=== PATIENT | female | born 1945 | race Caucasian/White ===

== ENCOUNTER → 2016-10-08 | Outpatient (CLI) | payer MEDICARE, OTHER | LOC: SP 15:53 | PROVIDERS: ATTEND Obstetrics & Gynecology Gynecologic Oncology | DX: M79.604 Pain in right leg (principal); M79.605 Pain in left leg | CPT/HCPCS: 93970 ==

== ENCOUNTER → 2016-11-23 | Outpatient (CLI) | payer MEDICARE, OTHER | LOC: RAD 08:52 | PROVIDERS: ATTEND Internal Medicine Gastroenterology | DX: K74.69 Other cirrhosis of liver (principal) | CPT/HCPCS: 76700 ==

== ENCOUNTER 2017-02-11 10:51 | Inpatient (IN) | payer MEDICARE, OTHER ==
[2017-02-11] MEDS ORDERED: NORMAL SALINE 1000 ML 1,000 ML IV ONE ×2 (11:00→13:42)
--- NOTE | 2017-02-11 11:18 | ER Document Report ---
ED General - General Chief Complaint: Blood Pressure Problem Stated Complaint: WEAKNESS Mode of Arrival: Medic Information source: Patient Notes: 71-year-old female presents with complaints of feeling dehydrated. Patient notes that she gets dizzy lightheaded when she stands. Patient was found hypotensive initially by EMS, was given fluid bolus and states she feels much better. Patient is on 2 different blood pressure medications. Notes she is always thirsty has a history of diabetes TRAVEL OUTSIDE OF THE [place] IN LAST 30 DAYS: No - HPI Onset: Yesterday Onset/Duration: Intermittent, Persistent Quality of pain: No pain Severity: Moderate Pain Level: Denies Associated symptoms: Weakness Exacerbated by: Standing Relieved by: Denies Similar symptoms previously: No Recently seen / treated by doctor: No - Related Data Allergies/Adverse Reactions: azithromycin [From Zithromax] Allergy (Severe, Verified 12/16/15 16:29) weak,feels like dying ciprofloxacin [From Cipro] Allergy (Severe, Verified 06/22/16 12:41) Hives on face esomeprazole [From Nexium] Allergy (Severe, Verified 06/22/16 12:41) Diarrhea gabapentin Allergy (Severe, Verified 06/22/16 12:41) Throat closed oxycodone HCl [From Percocet] Allergy (Severe, Verified 12/16/15 16:29) throat closes pentazocine lactate [From Talwin] Allergy (Severe, Verified 12/16/15 16:29) hallucinate,urinary retention pregabalin [From Lyrica] Allergy (Severe, Verified 12/16/15 16:29) throat closes/hives propofol [Propofol] Allergy (Severe, Verified 12/16/15 16:29) Coma propoxyphene HCl [From Darvon] Allergy (Severe, Verified 12/16/15 16:29) throat closes rosiglitazone maleate [From Avandia] Allergy (Severe, Verified 12/16/15 16:29) violent headache thimerosal [From Merthiolate] Allergy (Severe, Verified 12/16/15 16:29) hives,rash,fever sulfamethoxazole [From Bactrim] Allergy (Unknown, Verified 06/22/16 12:41) Cannot remember reaction trimethoprim [From Bactrim] Allergy (Unknown, Verified 06/22/16 12:41) Cannot remember reaction omeprazole [From Prilosec] Adverse Reaction (Severe, Verified 12/16/15 16:29) liver enzymes elevated Smjklrn-Rup-Pod Reductase Inhibitor Adverse Reaction (Severe, Verified 12/16/15 16:29) liver enzymes elevated valdecoxib [From Bextra] Adverse Reaction (Severe, Verified 12/16/15 16:29) elevated liver enzymes Past Medical History - Social History Smoking Status: Never Smoker Cigarette use (# per day): No Chew tobacco use (# tins/day): No Smoking Education Provided: No Family History: None, Other - unable to obtain due to pt being unstable - Past Medical History Cardiac Medical History: Reports: Hx Coronary Artery Disease, Hx Heart Attack - 1991 CAUSED BY BLOOD CLOT, Hx Hypertension Pulmonary Medical History: Reports: Hx Pneumonia - 2 yrs ago Denies: Hx Asthma, Hx Bronchitis, Hx COPD Neurological Medical History: Denies: Hx Cerebrovascular Accident, Hx Seizures Endocrine Medical History: Reports: Hx Diabetes Mellitus Type 2 Musculoskeltal Medical History: Reports Hx Arthritis Psychiatric Medical History: Reports: Hx Depression Past Surgical History: Reports: Hx Orthopedic Surgery - rotator cuff. Denies: Hx Hysterectomy - Immunizations Hx Diphtheria, Pertussis, Tetanus Vaccination: Yes Hx Pneumococcal Vaccination: 06/19/15 Review of Systems - Review of Systems Notes: PHYSICAL EXAMINATION: GENERAL: Frail elderly female no acute distress HEAD: Atraumatic, normocephalic. EYES: Pupils equal round and reactive to light, extraocular movements intact, conjunctiva are normal. ENT: Nares patent, oropharynx clear without exudates. Moist mucous membranes. NECK: Normal range of motion, supple without lymphadenopathy LUNGS: Breath sounds clear to auscultation bilaterally and equal. No wheezes rales or rhonchi. HEART: Regular rate and rhythm without murmurs ABDOMEN: Soft, nontender, nondistended abdomen. No guarding, no rebound. No masses appreciated. Female : deferred Musculoskeletal: Normal range of motion, no pitting or edema. No cyanosis. NEUROLOGICAL: Cranial nerves grossly intact. Normal speech, normal gait. Normal sensory, motor exams PSYCH: Normal mood, normal affect. SKIN: Warm, Dry, normal turgor, no rashes or lesions noted. Physical Exam - Vital signs Vitals: Resp 20 02/11/17 10:55 Course - Re-evaluation Re-evalutation: 02/11/17 11:18 Given that patient improved significantly with fluid bolus I believe this may be secondary to dehydration rather than medication or sepsis however septic labs have been ordered. 02/11/17 13:39 pt bp improved iwht fluids, uti noted, will admit for hypotension, renal failure and uti - Vital Signs Vital signs: Temp Pulse Resp BP Pulse Ox 97.4 F 18 93/46 L 100 02/11/17 11:06 02/11/17 13:31 02/11/17 13:31 02/11/17 13:31 - Laboratory Result Diagrams: 02/11/17 11:04 02/11/17 11:04 Laboratory results interpreted by me: 02/11/17 02/11/17 02/11/17 11:04 11:04 11:04 RBC 2.85 L Hgb 9.1 L Hct 27.9 L MCV 98 H RDW 16.1 H Lymphocytes % 12.8 L VBG pH 7.21 L VBG HCO3 14.0 L Chloride 112 H Carbon Dioxide 13 L BUN 102 H Creatinine 2.72 H Est GFR ( Amer) 21 L Est GFR (Non-Af Amer) 17 L Glucose 198 H Total Bilirubin 1.6 H Direct Bilirubin 1.3 H Alkaline Phosphatase 192 H Urine Nitrite Ur Leukocyte Esterase 02/11/17 12:26 RBC Hgb Hct MCV RDW Lymphocytes % VBG pH VBG HCO3 Chloride Carbon Dioxide BUN Creatinine Est GFR ( Amer) Est GFR (Non-Af Amer) Glucose Total Bilirubin Direct Bilirubin Alkaline Phosphatase Urine Nitrite POSITIVE H Ur Leukocyte Esterase MODERATE H Critical Care Note - Critical Care Note Total time excluding time spent on procedures (mins): 49 Comments: 49 minutes of critical care time spent in direct contact evaluating and reevaluating the patient, treating symptoms, reviewing labs and studies and speaking with family and consultants excluding any procedures Discharge - Discharge Clinical Impression: Acute renal failure Qualifiers: Acute renal failure type: unspecified Qualified Code(s): N17.9 - Acute kidney failure, unspecified Urinary tract infection Qualifiers: Urinary tract infection type: acute cystitis Hematuria presence: without hematuria Qualified Code(s): N30.00 - Acute cystitis without hematuria Hypotension Qualifiers: Hypotension type: unspecified hypotension type Qualified Code(s): I95.9 - Hypotension, unspecified Condition: Fair Disposition: ADMITTED INPATIENT [facility] Admitted: [facility]
[2017-02-11 11:20] LABS: VENOUS BLOOD BASE EXCESS -12.9 mmol/L; VENOUS BLOOD PCO2 35.7 mmHg (35-63); VENOUS BLOOD PH 7.21 (7.30-7.42)
[2017-02-11 11:21] LABS: ABSOLUTE EOSINOPHILS # (AUTO) 0.3 10^3/uL (0.0-0.6); ABSOLUTE LYMPHOCYTES (AUTO) 0.9 10^3/uL (0.5-4.7); ABSOLUTE MONOCYTES (AUTO) 0.9 10^3/uL (0.1-1.4); ABSOLUTE NEUT (AUTO) 4.8 10^3/uL (1.7-8.2); BASOPHILS % (AUTO) 0.5 % (0-2); EOSINOPHILS % (AUTO) 4.8 % (0-6); HEMATOCRIT 27.9 % (36.0-47.0); HEMOGLOBIN 9.1 g/dL (12.0-15.5); HGB HCT DIFFERENCE -0.6; LYMPHOCYTES % (AUTO) 12.8 % (13-45); MEAN CORPUSCULAR HEMOGLOBIN 32.1 pg (27.0-33.4); MEAN CORPUSCULAR HGB CONC 32.8 g/dL (32.0-36.0); MEAN CORPUSCULAR VOLUME 98 fl (80-97); RED BLOOD COUNT 2.85 10^6/uL (3.72-5.28); RED CELL DISTRIBUTION WIDTH 16.1 % (11.5-14.0); SEGMENTED NEUTROPHILS % (AUTO) 68.9 % (42-78)
[2017-02-11 11:32] LABS: PROTHROMBIN TIME 14.3 SEC (11.4-15.4)
[2017-02-11 11:45] LABS: ALANINE AMINOTRANSFERASE 27 U/L (9-52); ALBUMIN 3.7 g/dL (3.5-5.0); ALKALINE PHOSPHATASE 192 U/L (38-126); ANION GAP 15 (5-19); ASPARTATE AMINO TRANSFERASE 28 U/L (14-36); BILIRUBIN,DIRECT 1.3 mg/dL (0.0-0.4); BILIRUBIN,TOTAL 1.6 mg/dL (0.2-1.3); BLOOD UREA NITROGEN 102 mg/dL (7-20); CALCIUM 9.9 mg/dL (8.4-10.2); CARBON DIOXIDE 13 mmol/L (22-30); CHLORIDE 112 mmol/L (98-107); CREATININE RESULT 2.72 mg/dL (0.52-1.25); GLUCOSE 198 mg/dL (75-110); POTASSIUM 4.6 mmol/L (3.6-5.0); TOTAL PROTEIN 7.4 g/dL (6.3-8.2)
[2017-02-11] MEDS ORDERED: SUCCINYLCHOLINE CHLORIDE INJ 200 MG/10 ML VIAL ONE (12:00)
--- NOTE | 2017-02-11 12:09 | RADIOLOGY REPORT (SQ) ---
EXAM DESCRIPTION: CHEST PA/LAT COMPLETED DATE/TIME: 02/11/2017 11:55 am REASON FOR STUDY: hypotension COMPARISON: August 2016 EXAM PARAMETERS: NUMBER OF VIEWS: two views TECHNIQUE: Digital Frontal and Lateral radiographic views of the chest acquired. RADIATION DOSE: NA LIMITATIONS: none FINDINGS: LUNGS AND PLEURA: No opacities, masses or pneumothorax. No pleural effusion. MEDIASTINUM AND HILAR STRUCTURES: No masses or contour abnormalities. HEART AND VASCULAR STRUCTURES: Heart normal size. No evidence for failure. BONES: No acute findings. HARDWARE: None in the chest. OTHER: No other significant finding. IMPRESSION: NO SIGNIFICANT RADIOGRAPHIC FINDING IN THE CHEST. TECHNICAL DOCUMENTATION: JOB ID: [id number] [employer]- All Rights Reserved
--- NOTE | 2017-02-11 12:30 | RADIOLOGY REPORT (SQ) ---
EXAM DESCRIPTION: CERV SP 4 OR 5 VIEWS COMPLETED DATE/TIME: 02/11/2017 12:14 pm REASON FOR STUDY: fall COMPARISON: None. NUMBER OF VIEWS: Five views. TECHNIQUE: AP, lateral, obliques and odontoid radiographic images acquired of the cervical spine. LIMITATIONS: None. FINDINGS: MINERALIZATION: Osteopenia. ALIGNMENT: There is minimal retrolisthesis of C5 in relation to C4. There is minimal retrolisthesis of C6 in relation to C7. Anterior and posterior osteophytes are present at these levels. VERTEBRAE: Vertebral bodies of normal height. DISCS: Disc spaces are narrowed at C4-5 and at C6-7. FORAMINA: Neural foramina are narrowed at C4-5 and at C6-7, apparently on the left more than the righ t. LATERAL AND POSTERIOR ELEMENTS: Hypertrophic facet changes are present at multiple levels. HARDWARE: None in the spine. SOFT TISSUES: No masses or calcifications. Lung apices clear. OTHER: No other significant finding. IMPRESSION: 1. Retrolistheses at C4-5 and at C6-7 as described. 2. Spondylosis, degenerative disc disease, and facet arthropathy. TECHNICAL DOCUMENTATION: JOB ID: [id number]- All Rights Reserved
[2017-02-11] MEDS: NORMAL SALINE 1000 ML 1,000 ML IV PRN ×2 (12:38→13:14)
[2017-02-11 13:16] LABS: APPEARANCE,URINE SLIGHTLY-CLOUDY; BILIRUBIN,URINE NEGATIVE (NEGATIVE); GLUCOSE, URINE NEGATIVE (NEGATIVE); KETONES,URINE NEGATIVE (NEGATIVE); LEUKOCYTE ESTERASE,URINE MODERATE (NEGATIVE); NITRITE,URINE POSITIVE (NEGATIVE); PROTEIN,URINE NEGATIVE (NEGATIVE); URINE SPECIFIC GRAVITY 1.008; UROBILINOGEN,URINE NEGATIVE mg/dL (<2.0)
[2017-02-11] MEDS ORDERED: CEFTRIAXONE 1 GM/D5W RTU 50 ML IV ONE (13:38)
--- NOTE | 2017-02-11 18:00 | PDOC H&P ---
History of Present Illness Admission Date/PCP: 02/11/17 14:21 SHAZIA RIGOBERTO Patient complains of: Worsening generalized weakness, low blood pressure History of Present Illness: ROHAN COONEY is a 71 year old female known to my practice who was brought by EMS to ED with complain of worsening generalized weakness and reported low blood pressure by EMS personnel on site. She reported episode of fall outside of her house about 3 weeks ago and thereafter have become more weaker. She admitted to bruising left side of her body with the fall. There are multiple other bruises from recurrent falls thereafter. She denied passing out. She admitted to dizziness, lightheadedness and her symptom worsen with standing. She denied headache, focal weakness, nausea, vomiting, fever or chills. Patient total hysterectomy for in-situ cervical cancer. Her morbidities include CAD, old Myocardial infarction, Hypertension and Diabetes mellitus type 2. Past Medical History Cardiac Medical History: Reports: Coronary Artery Disease, Myocardial Infarction - 1991 CAUSED BY BLOOD CLOT, Hypertension Pulmonary Medical History: Reports: Pneumonia - 2 yrs ago Denies: Asthma, Bronchitis, Chronic Obstructive Pulmonary Disease (COPD) Neurological Medical History: Denies: Seizures Endocrine Medical History: Reports: Diabetes Mellitus Type 2 Musculoskeltal Medical History: Reports: Arthritis Psychiatric Medical History: Reports: Depression Hematology: Reports: Anemia - Pernicious anemia, Iron deficient anemia Past Surgical History Past Surgical History: Reports: Orthopedic Surgery - rotator cuff Denies: Hysterectomy Social History Smoking Status: Former Smoker Last Time Smoked: 1990 Frequency of Alcohol Use: None Hx Recreational Drug Use: No Drugs: None Hx Prescription Drug Abuse: No - Advance Directive Resuscitation Status: Full Code Family History Family History: None, Other - unable to obtain due to pt being unstable Parental Family History Reviewed: Yes Children Family History Reviewed: Yes Sibling(s) Family History Reviewed.: Yes Medication/Allergy Allergies/Adverse Reactions: azithromycin [From Zithromax] Allergy (Severe, Verified 12/16/15 16:29) weak,feels like dying ciprofloxacin [From Cipro] Allergy (Severe, Verified 06/22/16 12:41) Hives on face esomeprazole [From Nexium] Allergy (Severe, Verified 06/22/16 12:41) Diarrhea gabapentin Allergy (Severe, Verified 06/22/16 12:41) Throat closed oxycodone HCl [From Percocet] Allergy (Severe, Verified 12/16/15 16:29) throat closes pentazocine lactate [From Talwin] Allergy (Severe, Verified 12/16/15 16:29) hallucinate,urinary retention pregabalin [From Lyrica] Allergy (Severe, Verified 12/16/15 16:29) throat closes/hives propofol [Propofol] Allergy (Severe, Verified 12/16/15 16:29) Coma propoxyphene HCl [From Darvon] Allergy (Severe, Verified 12/16/15 16:29) throat closes rosiglitazone maleate [From Avandia] Allergy (Severe, Verified 12/16/15 16:29) violent headache thimerosal [From Merthiolate] Allergy (Severe, Verified 12/16/15 16:29) hives,rash,fever sulfamethoxazole [From Bactrim] Allergy (Unknown, Verified 06/22/16 12:41) Cannot remember reaction trimethoprim [From Bactrim] Allergy (Unknown, Verified 06/22/16 12:41) Cannot remember reaction omeprazole [From Prilosec] Adverse Reaction (Severe, Verified 12/16/15 16:29) liver enzymes elevated Goifhya-Ctu-Teg Reductase Inhibitor Adverse Reaction (Severe, Verified 12/16/15 16:29) liver enzymes elevated valdecoxib [From Bextra] Adverse Reaction (Severe, Verified 12/16/15 16:29) elevated liver enzymes Review of Systems Constitutional: PRESENT: weakness. ABSENT: as per HPI, anorexia, chills, fatigue, fever(s), headache(s), night sweats, weight gain, weight loss, other Eyes: ABSENT: visual disturbances Ears: ABSENT: hearing changes Nose, Mouth, and Throat: ABSENT: as per HPI, headache(s), mouth pain, sore throat, vertigo, other Breasts: ABSENT: as per HPI, other Cardiovascular: ABSENT: as per HPI, chest pain, dyspnea on exertion, edema, orthropnea, palpitations, other Respiratory: ABSENT: cough, hemoptysis Gastrointestinal: ABSENT: abdominal pain, constipation, diarrhea, hematemesis, hematochezia, nausea, vomiting Genitourinary: ABSENT: dysuria, hematuria Musculoskeletal: ABSENT: joint swelling Integumentary: PRESENT: lesions - multiple ecchymotic lesions Neurological: PRESENT: weakness - general weakness Psychiatric: ABSENT: anxiety, depression, homidical ideation, suicidal ideation Hematologic/Lymphatic: ABSENT: easy bleeding, easy bruising, lymphadenopathy Allergic/Immunologic: PRESENT: seasonal rhinorrhea Physical Exam Vital Signs: Temp Pulse Resp BP Pulse Ox 98.0 F 17 106/50 L 100 02/11/17 15:46 02/11/17 16:16 02/11/17 16:16 02/11/17 16:15 Intake & Output 02/10/17 02/11/17 02/12/17 06:59 06:59 06:59 Output Total 350 Balance -350 General appearance: PRESENT: no acute distress Head exam: PRESENT: atraumatic, normocephalic Eye exam: PRESENT: conjunctiva pink, EOMI, PERRLA. ABSENT: scleral icterus Ear exam: PRESENT: normal external ear exam Mouth exam: PRESENT: moist, tongue midline Throat exam: ABSENT: post pharyngeal erythema, tonsillar erythema, tonsillar exudate, tonsillogmegaly, other Neck exam: PRESENT: full ROM. ABSENT: carotid bruit, JVD, lymphadenopathy, thyromegaly Respiratory exam: ABSENT: accessory muscle use, chest wall tenderness, clear to auscultation david, crackles, decreased breath sounds, prolonged expiratory phas, rales, retraction, rhonchi, stridor, symmetrical, tachypnea, unlabored, wheezes , other Cardiovascular exam: PRESENT: RRR. ABSENT: diastolic murmur, rubs, systolic murmur Pulses: PRESENT: normal dorsalis pedis pul, +2 pedal pulses bilateral Vascular exam: PRESENT: normal capillary refill GI/Abdominal exam: PRESENT: normal bowel sounds, soft. ABSENT: distended, guarding, mass, organolmegaly, rebound, tenderness Rectal exam: PRESENT: deferred Gentrourinary exam: PRESENT: ecchymosis Extremities exam: PRESENT: full ROM Musculoskeletal exam: PRESENT: deformity - related to joint arthritis involvement, full ROM Neurological exam: PRESENT: alert, awake, oriented to person, oriented to place , oriented to time, oriented to situation, CN II-XII grossly intact. ABSENT: motor sensory deficit Psychiatric exam: PRESENT: appropriate affect, normal mood. ABSENT: homicidal ideation, suicidal ideation Skin exam: PRESENT: rash - irregular border, erythematous rash in the groin and beneath breast tissue, warm Results Impressions: Chest X-Ray 02/11/17 11:00 IMPRESSION: NO SIGNIFICANT RADIOGRAPHIC FINDING IN THE CHEST. Cervical Spine X-Ray 02/11/17 11:54 IMPRESSION: 1. Retrolistheses at C4-5 and at C6-7 as described. 2. Spondylosis, degenerative disc disease, and facet arthropathy. Assessment & Plan - Diagnosis (1) Acute renal failure Qualifiers: Acute renal failure type: unspecified Qualified Code(s): N17.9 - Acute kidney failure, unspecified Is this a current diagnosis for this admission?: YesPlan: See admitting physician orders. (2) Hypotension Qualifiers: Hypotension type: unspecified hypotension type Qualified Code(s): I95.9 - Hypotension, unspecified Is this a current diagnosis for this admission?: YesPlan: See admitting physician orders. (3) UTI (urinary tract infection) Qualifiers: Urinary tract infection type: acute cystitis Hematuria presence: without hematuria Qualified Code(s): N30.00 - Acute cystitis without hematuria Is this a current diagnosis for this admission?: Yes (4) Diabetes mellitus type 2 in nonobese Is this a current diagnosis for this admission?: YesPlan: See admitting physician orders. (5) Old myocardial infarction Is this a current diagnosis for this admission?: YesPlan: See admitting physician orders. (6) History of coronary artery disease Is this a current diagnosis for this admission?: YesPlan: See admitting physician orders. (7) Hypertension Qualifiers: Hypertension type: essential hypertension Qualified Code(s): I10 - Essential (primary) hypertension Is this a current diagnosis for this admission?: YesPlan: See admitting physician orders. - Time Time Spent: 50 to 70 Minutes Medications reviewed and adjusted accordingly: Yes Anticipated discharge: Home with Homehealth Within: Other - Inpatient Certification Medical Necessity: Need Close Monitoring Due to Risk of Patient Decompensation, Need For IV Fluids, Need For Continuous Telemetry Monitoring, Need for IV Antibiotics, Risk of Complication if Not Cared For in Hospital Post Hospital Care: D/C Master Scheduler Documentation - Plan Summary Plan Summary: See admitting physician orders.
[2017-02-11] MEDS ORDERED: DEXTROSE 40% GEL 15 GM TUBE PO PRN ×2 (18:06)
[2017-02-11] MEDS ORDERED: GLUCAGON,HUMAN RECOMB 1 MG INJ IM PRN (18:06)
[2017-02-11] MEDS ORDERED: DEXTROSE 50%-WATER 25 GM/50 ML DISP.SYRIN IV PRN ×2 (18:06)
[2017-02-11] MEDS ORDERED: INSULIN LISPRO 100 UNIT/ML 3 ML VIAL SUBCUT PRN (18:06)
[2017-02-11] MEDS ORDERED: NORMAL SALINE 1000 ML 1,000 ML IV PRN (18:06)
[2017-02-11] MEDS ORDERED: ACETAMINOPHEN 325 MG TABLET PO PRN (18:15)
[2017-02-11 19:09] LABS: PARTIAL THROMBOPLASTIN TIME 27.8 SEC (23.5-35.8)
[2017-02-11] MEDS ORDERED: NYSTATIN TOPICAL POWDER 15 GM TP ONE (19:30)
--- NOTE | 2017-02-11 20:33 | EKG REPORT ---
SEVERITY:- ABNORMAL ECG - SINUS RHYTHM VENTRICULAR PREMATURE COMPLEX INFERIOR INFARCT, OLD LATERAL LEADS ARE ALSO INVOLVED : Confirmed by: Enrique Lincoln MD 11-Feb-2017 20:32:01
[2017-02-11] MEDS: HEPARIN SOD (PORCINE) 5,000 UNIT/ML 1 ML SYRINGE SUBCUT SCH (21:33)
[2017-02-12 04:59] LABS: ALANINE AMINOTRANSFERASE 34 U/L (9-52); ALBUMIN 2.6 g/dL (3.5-5.0); ALKALINE PHOSPHATASE 147 U/L (38-126); ANION GAP 13 (5-19); ASPARTATE AMINO TRANSFERASE 24 U/L (14-36); BILIRUBIN,DIRECT 0.8 mg/dL (0.0-0.4); BILIRUBIN,TOTAL 0.8 mg/dL (0.2-1.3); CALCIUM 8.5 mg/dL (8.4-10.2); CARBON DIOXIDE 13 mmol/L (22-30); CHLORIDE 121 mmol/L (98-107); CREATININE RESULT 1.62 mg/dL (0.52-1.25); GLUCOSE 152 mg/dL (75-110); MAGNESIUM 1.4 mg/dL (1.6-2.3); PHOSPHORUS 3.4 mg/dL (2.5-4.5); POTASSIUM 3.9 mmol/L (3.6-5.0); SODIUM 147.1 mmol/L (137-145); TOTAL PROTEIN 5.3 g/dL (6.3-8.2)
[2017-02-12 05:03] LABS: HEMATOCRIT 22.7 % (36.0-47.0); HGB HCT DIFFERENCE -0.5; MEAN CORPUSCULAR HEMOGLOBIN 32.2 pg (27.0-33.4); MEAN CORPUSCULAR HGB CONC 32.5 g/dL (32.0-36.0); MEAN CORPUSCULAR VOLUME 99 fl (80-97); RED BLOOD COUNT 2.29 10^6/uL (3.72-5.28); RED CELL DISTRIBUTION WIDTH 16.3 % (11.5-14.0); WHITE BLOOD COUNT 4.2 10^3/uL (4.0-10.5)
[2017-02-12 05:26] LABS: BLOOD UREA NITROGEN 66 mg/dL (7-20)
[2017-02-12 05:28] LABS: HEMOGLOBIN 7.4 g/dL (12.0-15.5)
[2017-02-12 05:30] LABS: CREATINE KINASE MB 7.23 ng/mL (<4.55)
[2017-02-12 05:33] LABS: TROPONIN I 1.36 ng/mL
[2017-02-12 05:34] LABS: BASOPHILS % (MANUAL) 0 % (0-2); EOSINOPHILS % (MANUAL) 3 % (0-6); LYMPHOCYTES % (MANUAL) 13 % (13-45); TOTAL CELLS COUNTED 100
[2017-02-12 05:35] LABS: TOXIC GRANULATION 2+
[2017-02-12 05:36] LABS: ANISOCYTOSIS 1+; BURR CELLS SLIGHT; OVALOCYTES 1+; POIKILOCYTOSIS 1+; TEAR DROP CELLS 1+
[2017-02-12] MEDS: HEPARIN SOD (PORCINE) 5,000 UNIT/ML 1 ML SYRINGE SUBCUT SCH ×2 (05:40→15:03)
[2017-02-12] MEDS ORDERED: LANSOPRAZOLE 30 MG TAB.RAP.DR PO SCH (06:00)
[2017-02-12] MEDS ORDERED: NORMAL SALINE 1000 ML 1,000 ML IV PRN (06:02)
--- NOTE | 2017-02-12 08:14 | EKG REPORT ---
SEVERITY:- ABNORMAL ECG - SINUS TACHYCARDIA PAIRED VENTRICULAR PREMATURE COMPLEXES INFERIOR INFARCT, OLD NONSPECIFIC ST-T CHANGES IN ANTEROLATERAL LEADS . : Confirmed by: Enrique Lincoln MD 12-Feb-2017 08:13:35
[2017-02-12] MEDS ORDERED: NYSTATIN TOPICAL POWDER 15 GM TP SCH (10:00)
[2017-02-12] MEDS ORDERED: CEFTRIAXONE 1 GM/D5W RTU 50 ML IV SCH (10:00)
[2017-02-12] MEDS ORDERED: MAGNESIUM OXIDE 400 MG TABLET PO SCH (10:00)
[2017-02-12 10:21] LABS: CREATINE KINASE MB 15.8 ng/mL (<4.55)
[2017-02-12 10:30] LABS: TROPONIN I 2.43 ng/mL
[2017-02-12] MEDS ORDERED: HEPARIN SODIUM,PORCINE/D5W 250 ML IV PRN (10:52)
[2017-02-12] MEDS ORDERED: HEPARIN SOD (PORCINE) 1,000 UNIT/ML 10 ML VIAL IV PRN (10:52)
[2017-02-12] MEDS ORDERED: HEPARIN SOD (PORCINE) 1,000 UNIT/ML 10 ML VIAL IV ONE (10:52)
[2017-02-12] MEDS ORDERED: ASPIRIN 81 MG TABLET, CHEWABLE PO ONE (11:30)
[2017-02-12] MEDS ORDERED: CLOPIDOGREL BISULFATE 300 MG TABLET PO ONE (11:30)
[2017-02-12] MEDS ORDERED: METOPROLOL TARTRATE 25 MG TABLET PO ONE (11:30)
[2017-02-12] MEDS ORDERED: ATORVASTATIN CALCIUM 80 MG TABLET PO ONE (11:30)
[2017-02-12 12:10] LABS: ABSOLUTE EOSINOPHILS # (AUTO) 0.2 10^3/uL (0.0-0.6); ABSOLUTE LYMPHOCYTES (AUTO) 0.6 10^3/uL (0.5-4.7); ABSOLUTE MONOCYTES (AUTO) 0.5 10^3/uL (0.1-1.4); ABSOLUTE NEUT (AUTO) 2.5 10^3/uL (1.7-8.2); BASOPHILS % (AUTO) 0.4 % (0-2); EOSINOPHILS % (AUTO) 4.2 % (0-6); HEMATOCRIT 20.4 % (36.0-47.0); HGB HCT DIFFERENCE -0.3; LYMPHOCYTES % (AUTO) 16.1 % (13-45); MEAN CORPUSCULAR HEMOGLOBIN 32.7 pg (27.0-33.4); MEAN CORPUSCULAR VOLUME 99 fl (80-97); MONOCYTES % (AUTO) 13.2 % (3-13); RED BLOOD COUNT 2.06 10^6/uL (3.72-5.28); RED CELL DISTRIBUTION WIDTH 15.9 % (11.5-14.0); SEGMENTED NEUTROPHILS % (AUTO) 66.1 % (42-78); WHITE BLOOD COUNT 3.8 10^3/uL (4.0-10.5)
[2017-02-12 12:12] LABS: HEMOGLOBIN 6.7 g/dL (12.0-15.5)
[2017-02-12] MEDS ORDERED: DOPAMINE HCL/DEXTROSE 5%-WATER 800 MG/250 ML RTUINJ IV ONE (12:12)
[2017-02-12 12:15] LABS: PARTIAL THROMBOPLASTIN TIME 34.1 SEC (23.5-35.8)
--- NOTE | 2017-02-12 12:15 | PDOC TRANSFER SUMMARY ---
General Admission Date/PCP: 02/11/17 18:00 SHAZIA FRANKLIN Admission Date: 02/11/17 Transfer Date: 02/12/17 Accepting Facility: [facility] Resuscitation Status: Full Code - Transfer Diagnosis (1) Acute ST elevation myocardial infarction Is this a current diagnosis for this admission?: Yes (2) Gram-positive cocci in clusters Is this a current diagnosis for this admission?: Yes (3) Acute myocardial infarction Is this a current diagnosis for this admission?: Yes (4) Acute kidney injury Is this a current diagnosis for this admission?: Yes (5) Hypotension Is this a current diagnosis for this admission?: Yes (6) Old myocardial infarction Is this a current diagnosis for this admission?: Yes (7) UTI (urinary tract infection) Is this a current diagnosis for this admission?: Yes (8) Cardiopulmonary arrest with successful resuscitation Is this a current diagnosis for this admission?: Yes (9) Anemia Is this a current diagnosis for this admission?: Yes (10) Gram-positive cocci bacteremia Is this a current diagnosis for this admission?: Yes - Transfer Medications Home Medications: Allopurinol [Zyloprim 100 mg Tablet] 100 mg PO DAILY 02/11/17 Duloxetine HCl 30 mg PO QPM 02/11/17 Duloxetine HCl 60 mg PO QAM 02/11/17 Ferrous Sulfate [Feosol 325 mg Tablet] 325 mg PO DAILY 02/11/17 Fexofenadine HCl [Christy] 180 mg PO DAILY 02/11/17 Folic Acid [Folvite 1 mg Tablet] 1 mg PO DAILY 02/11/17 Furosemide [Lasix 20 mg Tablet] 20 mg PO DAILY 02/11/17 Insulin Aspart [Novolog Insulin (Aspart) 100 unit/mL] 1 units SQ MEALS 02/11/17 Insulin Detemir [Levemir Insulin 100 units/mL] 25 units SQ WSUPPER 02/11/17 Insulin Detemir [Levemir Insulin 100 units/mL] 30 units SQ WBRKFST 02/11/17 Isosorbide Mononitrate [Imdur 60 mg Tablet.er] 60 mg PO DAILY 02/11/17 Pantoprazole Sodium [Protonix] 20 mg PO DAILY 02/11/17 Propranolol HCl [Inderal 40 mg Tablet] 40 mg PO QPM 02/11/17 Propranolol HCl [Inderal 40 mg Tablet] 60 mg PO QAM 02/11/17 Sitagliptin Phosphate [Januvia] 100 mg PO DAILY 02/11/17 Telmisartan [Micardis 80 mg Tablet] 80 mg PO DAILY 02/11/17 Tolterodine Tartrate [Detrol LA] 2 mg PO BID 02/11/17 Zolpidem Tartrate [Ambien 5 mg Tablet] 5 mg PO QHS 02/11/17 Transfer Medications: Current Medications Acetaminophen (Tylenol 325 Mg Tablet) 650 mg PO Q6HP PRN PRN Reason: pain/fever Stop: 03/13/17 18:14 Clopidogrel Bisulfate (Plavix 300 Mg Tablet) 300 mg PO DAILY [facility] Stop: 02/14/17 09:59 Dextrose (Dextrose Inj 50% Syringe (25 Gm/50 Ml)) 12.5 gm IV PRN PRN; Protocol PRN Reason: FOR BG 50-69 IN ALERT PATIENT Stop: 03/13/17 18:05 Dextrose (Dextrose Inj 50% Syringe (25 Gm/50 Ml)) 25 gm IV PRN PRN PRN Reason: Protocol Stop: 03/13/17 18:05 Glucagon (Glucagen Inj 1 Mg Vial) 1 mg IM PRN PRN; Protocol PRN Reason: Evaluate for BG < 70 Stop: 03/13/17 18:05 Glucose (Glutose 40% Gel 15 Gm Tube) 15 gm PO PRN PRN; Protocol PRN Reason: FOR BG 50-69 IN ALERT PATIENT Stop: 03/13/17 18:05 Glucose (Glutose 40% Gel 15 Gm Tube) 30 gm PO PRN PRN; Protocol PRN Reason: FOR BG < 50 IN ALERT PATIENT Stop: 03/13/17 18:05 Heparin Sodium (Porcine) (Heparin Inj 5,000 Units/Ml 1 Ml Syringe) 5,000 unit SUBCUT Q8 [facility] Stop: 03/13/17 21:59 Last Admin: 02/12/17 05:40 Dose: Not Given Heparin Sodium (Porcine) (Heparin Inj 1,000 Unit/Ml 10 Ml Vial) 0 - 12,000 unit IV .BOLUS PER PROTOCOL PRN; Protocol PRN Reason: RESPOND TO aPTT VALUE Stop: 03/14/17 10:51 Sodium Chloride (Nacl 0.9% 1000 Ml Iv Soln) 1,000 mls @ 0 mls/hr IV X 2 BAGS PRN; Wide Open PRN Reason: THIS MED IS NOT "PRN" Last Admin: 02/11/17 13:14 Dose: 1,000 ml Ceftriaxone Sodium/Dextrose (Rocephin Rtu 1 Gm/D5w 50 Ml Premix) 50 mls @ 100 mls/hr IV DAILY [facility] Stop: 02/19/17 09:59 Last Admin: 02/12/17 10:43 Dose: 50 ml Sodium Chloride (Nacl 0.9% 1000 Ml Iv Soln) 1,000 mls @ 50 mls/hr IV CONTINUOUS PRN PRN Reason: THIS MED IS NOT "PRN" Stop: 03/14/17 06:01 Heparin Sodium/Dextrose (Heparin Rtu 25,000 Unit/250 Ml D5w Premix) 250 mls @ 0 mls/hr IV CONTINUOUS PRN; Protocol; Titrate PRN Reason: THIS MED IS NOT "PRN" Stop: 03/14/17 10:51 Insulin Human Lispro (Humalog Insulin 100 Unit/1 Ml 3 Ml Vial) 0 - 12 unit SUBCUT ACHSP PRN PRN Reason: Protocol Stop: 03/13/17 18:05 Last Admin: 02/12/17 08:05 Dose: 2 unit Lansoprazole (Prevacid 30 Mg Odt Tablet) 30 mg PO Q6AM [facility] Stop: 03/14/17 05:59 Last Admin: 02/12/17 08:05 Dose: 30 mg Magnesium Oxide (Mag-Ox 400 Mg Tablet) 400 mg PO DAILY [facility] Stop: 03/14/17 09:59 Last Admin: 02/12/17 10:43 Dose: 400 mg Metoprolol Tartrate (Lopressor 25 Mg Tablet) 12.5 mg PO Q12 [facility] Stop: 03/14/17 21:59 Nystatin (Mycostatin Topical Powder 15 Gm) 1 applic TP BID [facility] Stop: 02/19/17 09:59 Last Admin: 02/12/17 10:44 Dose: 1 applic - Allergies Allergies/Adverse Reactions: azithromycin [From Zithromax] Allergy (Severe, Verified 12/16/15 16:29) weak,feels like dying ciprofloxacin [From Cipro] Allergy (Severe, Verified 06/22/16 12:41) Hives on face esomeprazole [From Nexium] Allergy (Severe, Verified 06/22/16 12:41) Diarrhea gabapentin Allergy (Severe, Verified 06/22/16 12:41) Throat closed oxycodone HCl [From Percocet] Allergy (Severe, Verified 12/16/15 16:29) throat closes pentazocine lactate [From Talwin] Allergy (Severe, Verified 12/16/15 16:29) hallucinate,urinary retention pregabalin [From Lyrica] Allergy (Severe, Verified 12/16/15 16:29) throat closes/hives propofol [Propofol] Allergy (Severe, Verified 12/16/15 16:29) Coma propoxyphene HCl [From Darvon] Allergy (Severe, Verified 12/16/15 16:29) throat closes rosiglitazone maleate [From Avandia] Allergy (Severe, Verified 12/16/15 16:29) violent headache thimerosal [From Merthiolate] Allergy (Severe, Verified 12/16/15 16:29) hives,rash,fever sulfamethoxazole [From Bactrim] Allergy (Unknown, Verified 06/22/16 12:41) Cannot remember reaction trimethoprim [From Bactrim] Allergy (Unknown, Verified 06/22/16 12:41) Cannot remember reaction omeprazole [From Prilosec] Adverse Reaction (Severe, Verified 12/16/15 16:29) liver enzymes elevated Ctxvjdo-Zpw-Spx Reductase Inhibitor Adverse Reaction (Severe, Verified 12/16/15 16:29) liver enzymes elevated valdecoxib [From Bextra] Adverse Reaction (Severe, Verified 12/16/15 16:29) elevated liver enzymes Hospital Course Hospital Course: Patient was admitted yesterday when she presented with low blood pressure, acute kidney injury and urinary tract infection. she was empirically started on IV antibiotic, IV fluid, the acute kidney injury is most likely prerenal. Last night she had episode of chest pain is a 12-lead EKG was done, it showed a new ST segment change in the inferior leads. She has a history of old myocardial infarction, with Q waves in inferior leads. Initial troponin was 1 is now increased to 2 when she was admitted last night the serum creatinine was 2.72 with hydration is now 1.62 suggesting that the acute kidney injury is most likely prerenal. Subsequent EKG showed Q waves in inferior leads.the blood pressure was normal initially but it is low ,now ,the last hemoglobin level was 6 .7 ,she will be transfused with packed red blood cells. She was to be transferred to [facility] due to a new onset ST segment elevated myocardial infarction, then she developed low blood pressure became hemodynamically unstable she required multiple intravenous pressors and ultimately intubated on mechanical ventilation she was then transferred to radiology to obtain a CT scan of the abdomen and pelvis because of concern that she may have had intraperitoneal hemorrhage because of the steep decline in hemoglobin. The CAT scan was negative but it showed ascites in the abdomen suggesting liver disease. She developed pulmonary, ACLS was activated with chest compression and ultimately the blood pressure was restored on multiple IV pressors and she was transferred to [place]. Physical Exam Vital Signs: Temp Pulse Resp BP Pulse Ox 98.1 F 105 H 19 112/47 L 100 02/12/17 07:58 02/12/17 07:58 02/12/17 07:58 02/12/17 07:58 02/12/17 07:58 Intake & Output 02/11/17 02/12/17 02/13/17 06:59 06:59 06:59 Intake Total 2630 Balance 2630 Weight 63.5 kg General appearance: PRESENT: other - sedated on mechanical ventilation Eye exam: PRESENT: PERRLA Respiratory exam: PRESENT: clear to auscultation david Cardiovascular exam: PRESENT: +S1, +S2 GI/Abdominal exam: PRESENT: soft Neurological exam: PRESENT: alert, altered Results Laboratory Results: 02/12/17 04:20 02/12/17 02/12/17 04:20 04:20 WBC 4.2 RBC 2.29 L Hgb 7.4 L Hct 22.7 L MCV 99 H MCH 32.2 MCHC 32.5 RDW 16.3 H Plt Count 100 L Seg Neutrophils % Not Reportable Lymphocytes % Not Reportable Monocytes % Not Reportable Eosinophils % Not Reportable Basophils % Not Reportable Absolute Neutrophils Not Reportable Absolute Lymphocytes Not Reportable Absolute Monocytes Not Reportable Absolute Eosinophils Not Reportable Absolute Basophils Not Reportable Sodium 147.1 H Potassium 3.9 Chloride 121 H Carbon Dioxide 13 L Anion Gap 13 BUN 66 H D Creatinine 1.62 H Est GFR ( Amer) 38 L Est GFR (Non-Af Amer) 31 L Glucose 152 H Calcium 8.5 Phosphorus 3.4 Magnesium 1.4 L Total Bilirubin 0.8 AST 24 ALT 34 Alkaline Phosphatase 147 H Total Protein 5.3 L Albumin 2.6 L 02/12/17 02/12/17 02/12/17 04:20 04:20 04:20 Creatine Kinase 72 CK-MB (CK-2) 7.23 H Troponin I 1.360 NT-Pro-B Natriuret Pep 2530 H 02/12/17 02/12/17 09:30 09:30 Creatine Kinase 158 H CK-MB (CK-2) 15.80 H Troponin I 2.430 NT-Pro-B Natriuret Pep Impressions: Chest X-Ray 02/11/17 11:00 IMPRESSION: NO SIGNIFICANT RADIOGRAPHIC FINDING IN THE CHEST. Cervical Spine X-Ray 02/11/17 11:54 IMPRESSION: 1. Retrolistheses at C4-5 and at C6-7 as described. 2. Spondylosis, degenerative disc disease, and facet arthropathy.
[2017-02-12] MEDS ORDERED: NORMAL SALINE 250 ML IV PRN ×2 (12:16)
[2017-02-12 12:43] LABS: ALANINE AMINOTRANSFERASE 33 U/L (9-52); ALBUMIN 2.7 g/dL (3.5-5.0); ALKALINE PHOSPHATASE 172 U/L (38-126); ANION GAP 15 (5-19); ASPARTATE AMINO TRANSFERASE 46 U/L (14-36); BILIRUBIN,DIRECT 0.7 mg/dL (0.0-0.4); BILIRUBIN,TOTAL 0.7 mg/dL (0.2-1.3); BLOOD UREA NITROGEN 55 mg/dL (7-20); CALCIUM 8.6 mg/dL (8.4-10.2); CARBON DIOXIDE 11 mmol/L (22-30); CHLORIDE 120 mmol/L (98-107); CREATININE RESULT 1.44 mg/dL (0.52-1.25); GLUCOSE 211 mg/dL (75-110); POTASSIUM 3.4 mmol/L (3.6-5.0); SODIUM 145.7 mmol/L (137-145); TOTAL PROTEIN 5.4 g/dL (6.3-8.2)
[2017-02-12] MEDS ORDERED: DOPAMINE HCL 800 MG/D5W 250 ML IV PRN (12:45)
[2017-02-12] MEDS ORDERED: AMIODARONE HCL INJ 150 MG/3 ML VIAL IV ONE (13:14)
[2017-02-12] MEDS ORDERED: EPINEPHRINE INJ 1 MG/10 ML DISP.SYRIN ONE (13:14)
[2017-02-12] MEDS ORDERED: NORMAL SALINE 1000 ML 1,000 ML IV ONE (13:30)
[2017-02-12 14:11] VITALS: BP 89/61
[2017-02-12] MEDS ORDERED: PROPOFOL INJ 200 MG/20 ML VIAL IV ONE (14:52)
--- NOTE | 2017-02-12 15:14 | RADIOLOGY REPORT (SQ) ---
EXAM DESCRIPTION: CT ABD/PELVIS NO ORAL OR IV COMPLETED DATE/TIME: 02/12/2017 3:02 pm REASON FOR STUDY: abdominal pain /severe anemia COMPARISON: 12/22/2012 TECHNIQUE: CT scan of the abdomen and pelvis performed without intravenous or oral contrast. Images reviewed with lung, soft tissue, and bone windows. Reconstructed coronal and sagittal MPR images revi ewed. All images stored on PACS. All CT scanners at this facility use dose modulation, iterative reconstruction, and/or weight based d osing when appropriate to reduce radiation dose to as low as reasonably achievable (ALARA). [facility]: Dose Right [facility]: CareDose [facility]: Dose Right [facility]: Teradose 4D [facility]: Startlocal RADIATION DOSE: 18.43mGy. LIMITATIONS: None. FINDINGS: LOWER CHEST: Atelectasis. NON-CONTRASTED LIVER, SPLEEN, ADRENALS: Pneumobilia. PANCREAS: No masses. No peripancreatic inflammatory changes. GALLBLADDER: Gallstones. No inflammatory changes to suggest cholecystitis. RIGHT KIDNEY AND URETER: No suspicious masses. Assessment limited by lack of IV contrast. No signif icant calcifications. No hydronephrosis or hydroureter. LEFT KIDNEY AND URETER: No suspicious masses. Assessment limited by lack of IV contrast. No signifi cant calcifications. No hydronephrosis or hydroureter. AORTA AND RETROPERITONEUM: No aneurysm. No retroperitoneal masses or adenopathy. BOWEL AND PERITONEAL CAVITY: Small amount of ascites. No evidence of bowel obstruction. No free air . APPENDIX: Normal. PELVIS, BLADDER, AND ABDOMINAL WALL:No abnormal masses. No free fluid. Bladder normal. BONES: No acute findings. OTHER: No other significant finding. IMPRESSION: No evidence of retroperitoneal hemorrhage. TECHNICAL DOCUMENTATION: JOB ID: [id number] Quality ID # [id number]: Final reports with documentation of one or more dose reduction techniques (e.g., Au tomated exposure control, adjustment of the mA and/or kV according to patient size, use of iterative reconstruction technique) 2010 [employer]- All Rights Reserved
--- NOTE | 2017-02-12 15:38 | Operative Report ---
Operative Report DATE OF SURGERY: 02/12/17 PREOPERATIVE DIAGNOSIS: 1. Cardiogenic shock POSTOPERATIVE DIAGNOSIS: same OPERATION: Ultrasound directed insertion of right common femoral vein triple- lumen central venous access catheter. SURGEON: JIM TABARES ANESTHESIA: Local TISSUE REMOVED OR ALTERED: Blood COMPLICATIONS: None ESTIMATED BLOOD LOSS: 15 cc INTRAOPERATIVE FINDINGS: See below PROCEDURE: Patient was in hemodynamically shock upon my arrival to the bedside in room 316. Because of the emergent nature of the procedure, I proceeded without obtaining informed consent. There was inadequate IV access to permit infusion of vasopressor agents. The right groin was cleaned with Jose wipes 5. Right groin was prepped and draped with chlorhexidine. The skin was anesthetized with 1% lidocaine with epinephrine. Using ultrasound as a guide, using Seldinger technique, a triple- lumen central venous access catheter was threaded into the right common femoral vein without difficulty. There was excellent blood flow through all 3 lm. Catheter was flushed with saline, and secured to the skin with 2 silk suture. Biopatch and sterile dressing applied. Patient procedure well without complication.
[2017-02-12] MEDS ORDERED: VANCOMYCIN HCL 1,000 MG in DEXTROSE 5%-WATER 250 ML IV ONE (16:08)
--- NOTE | 2017-02-12 16:57 | EKG REPORT ---
SEVERITY:- ABNORMAL ECG - SINUS TACHYCARDIA RIGHT AXIS DEVIATION CONSIDER ANTERIOR INFARCT REPOL ABNRM SUGGESTS ISCHEMIA, LATERAL LEADS MINIMAL ST ELEVATION, INFERIOR LEADS , ACUTE [place] : Confirmed by: Enrique Lincoln MD 12-Feb-2017 16:56:48
--- NOTE | 2017-02-12 16:58 | EKG REPORT ---
SEVERITY:- ABNORMAL ECG - SINUS TACHYCARDIA LEFT POSTERIOR FASCICULAR BLOCK BORDERLINE INFERIOR Q WAVES CONSIDER ANTERIOR INFARCT REPOL ABNRM SUGGESTS ISCHEMIA, LATERAL LEADS ST ELEVATION, ACUTE INFERIOR [place] : Confirmed by: Enrique Lincoln MD 12-Feb-2017 16:57:55
--- NOTE | 2017-02-12 16:59 | ER Document Report ---
ED General - General Chief Complaint: Blood Pressure Problem Stated Complaint: WEAKNESS Mode of Arrival: Medic Information source: Emergency Med Personnel, [facility] Records Cannot obtain history due to: Unstable vital signs Notes: This is a 71-year-old female who was being transferred today from the inpatient floors to [facility] because of hypertension, drop in crit, acute coronary syndrome. Patient was reportedly intubated prior to transfer and was receiving packed red blood cells as well as IV norepinephrine drip, dopamine drip, Nino- Synephrine drip. Patient was in the process of being loaded onto the helicopter when she went into cardiac arrest and she was brought into the emergency room in full cardiac arrest. TRAVEL OUTSIDE OF THE [place] IN LAST 30 DAYS: No - Related Data Allergies/Adverse Reactions: azithromycin [From Zithromax] Allergy (Severe, Verified 12/16/15 16:29) weak,feels like dying ciprofloxacin [From Cipro] Allergy (Severe, Verified 06/22/16 12:41) Hives on face esomeprazole [From Nexium] Allergy (Severe, Verified 06/22/16 12:41) Diarrhea gabapentin Allergy (Severe, Verified 06/22/16 12:41) Throat closed oxycodone HCl [From Percocet] Allergy (Severe, Verified 12/16/15 16:29) throat closes pentazocine lactate [From Talwin] Allergy (Severe, Verified 12/16/15 16:29) hallucinate,urinary retention pregabalin [From Lyrica] Allergy (Severe, Verified 12/16/15 16:29) throat closes/hives propofol [Propofol] Allergy (Severe, Verified 12/16/15 16:29) Coma propoxyphene HCl [From Darvon] Allergy (Severe, Verified 12/16/15 16:29) throat closes rosiglitazone maleate [From Avandia] Allergy (Severe, Verified 12/16/15 16:29) violent headache thimerosal [From Merthiolate] Allergy (Severe, Verified 12/16/15 16:29) hives,rash,fever sulfamethoxazole [From Bactrim] Allergy (Unknown, Verified 06/22/16 12:41) Cannot remember reaction trimethoprim [From Bactrim] Allergy (Unknown, Verified 06/22/16 12:41) Cannot remember reaction omeprazole [From Prilosec] Adverse Reaction (Severe, Verified 03/29/16 16:29) liver enzymes elevated Jnrlyxu-Hij-Luj Reductase Inhibitor Adverse Reaction (Severe, Verified 12/16/15 16:29) liver enzymes elevated valdecoxib [From Bextra] Adverse Reaction (Severe, Verified 12/16/15 16:29) elevated liver enzymes Home Medications: Current Home Medications Allopurinol [Zyloprim 100 mg Tablet] 100 mg PO DAILY 02/11/17 [History] Duloxetine HCl 30 mg PO QPM 02/11/17 [History] Duloxetine HCl 60 mg PO QAM 02/11/17 [History] Ferrous Sulfate [Feosol 325 mg Tablet] 325 mg PO DAILY 02/11/17 [History] Fexofenadine HCl [Christy] 180 mg PO DAILY 02/11/17 [History] Folic Acid [Folvite 1 mg Tablet] 1 mg PO DAILY 02/11/17 [History] Furosemide [Lasix 20 mg Tablet] 20 mg PO DAILY 02/11/17 [History] Insulin Aspart [Novolog Insulin (Aspart) 100 unit/mL] 1 units SQ MEALS 02/11/17 [History] Insulin Detemir [Levemir Insulin 100 units/mL] 25 units SQ WSUPPER 02/11/17 [ History] Insulin Detemir [Levemir Insulin 100 units/mL] 30 units SQ WBRKFST 02/11/17 [ History] Isosorbide Mononitrate [Imdur 60 mg Tablet.er] 60 mg PO DAILY 02/11/17 [History] Pantoprazole Sodium [Protonix] 20 mg PO DAILY 02/11/17 [History] Propranolol HCl [Inderal 40 mg Tablet] 40 mg PO QPM 02/11/17 [History] Propranolol HCl [Inderal 40 mg Tablet] 60 mg PO QAM 02/11/17 [History] Sitagliptin Phosphate [Januvia] 100 mg PO DAILY 02/11/17 [History] Telmisartan [Micardis 80 mg Tablet] 80 mg PO DAILY 02/11/17 [History] Tolterodine Tartrate [Detrol LA] 2 mg PO BID 02/11/17 [History] Zolpidem Tartrate [Ambien 5 mg Tablet] 5 mg PO QHS 02/11/17 [History] Past Medical History - General Information source: Patient Cannot obtain history due to: Unstable vital signs - Social History Smoking Status: Former Smoker Cigarette use (# per day): No Chew tobacco use (# tins/day): No Frequency of alcohol use: None Drug Abuse: None Family History: None, Other - unable to obtain due to pt being unstable - Past Medical History Cardiac Medical History: Reports: Hx Coronary Artery Disease, Hx Heart Attack - 1991 CAUSED BY BLOOD CLOT, Hx Hypertension Pulmonary Medical History: Reports: Hx Pneumonia - 2 yrs ago Denies: Hx Asthma, Hx Bronchitis, Hx COPD Neurological Medical History: Denies: Hx Cerebrovascular Accident, Hx Seizures Endocrine Medical History: Reports: Hx Diabetes Mellitus Type 2 Musculoskeltal Medical History: Reports Hx Arthritis Psychiatric Medical History: Reports: Hx Depression Past Surgical History: Reports: Hx Abdominal Surgery, Hx Orthopedic Surgery - rotator cuff. Denies: Hx Hysterectomy - Immunizations Hx Diphtheria, Pertussis, Tetanus Vaccination: Yes Hx Pneumococcal Vaccination: 06/19/15 Review of Systems - Review of Systems -: Yes ROS unobtainable due to patient's medical condition Physical Exam - Vital signs Vitals: Resp 20 02/11/17 10:55 Notes: Patient was in cardiac arrest. Patient was already intubated and on a ventilator. Physical exam reveals scant blood in the endotracheal tube. She does have bilateral breath sounds CPR is in progress. Course - Re-evaluation Re-evalutation: 02/12/17 17:05 Note: Patient had bilateral breath sounds with ventilations. CPR was continued for approximately 30 minutes. She received epinephrine 6, she did have an episode of V. tach and was Defibrillated twice. She had received 300 mg of amiodarone. We were able to get a pulse back. Bedside ultrasound revealed poor contractility. Vascular ultrasound revealed carotid pulse. Blood pressure was systolic of 90. Epinephrine drip was added. Patient had completed 2 units packed red blood cells (she was started before transfer from the floor). I did discuss events with Dr. Padilla at [facility]. I reviewed today's abdominal CT which showed no evidence of intraperitoneal bleeding or retroperitoneal bleeding. Dr. Zamarripa was present during the code trauma 1. Dr. Garcia was notified and did arrive while patient was in the ER. - Vital Signs Vital signs: Temp Pulse Resp BP Pulse Ox 98.0 F 100 16 89/61 L 100 02/12/17 12:04 02/12/17 12:04 02/12/17 12:04 02/12/17 14:10 02/12/17 12:04 - Laboratory Result Diagrams: 02/12/17 11:44 02/12/17 11:44 Laboratory results interpreted by me: 02/11/17 02/11/17 02/11/17 11:04 11:04 11:04 RBC 2.85 L Hgb 9.1 L Hct 27.9 L MCV 98 H RDW 16.1 H Lymphocytes % 12.8 L VBG pH 7.21 L VBG HCO3 14.0 L Chloride 112 H Carbon Dioxide 13 L BUN 102 H Creatinine 2.72 H Est GFR ( Amer) 21 L Est GFR (Non-Af Amer) 17 L Glucose 198 H Total Bilirubin 1.6 H Direct Bilirubin 1.3 H Alkaline Phosphatase 192 H Urine Nitrite Ur Leukocyte Esterase 02/11/17 12:26 RBC Hgb Hct MCV RDW Lymphocytes % VBG pH VBG HCO3 Chloride Carbon Dioxide BUN Creatinine Est GFR ( Amer) Est GFR (Non-Af Amer) Glucose Total Bilirubin Direct Bilirubin Alkaline Phosphatase Urine Nitrite POSITIVE H Ur Leukocyte Esterase MODERATE H Critical Care Note - Critical Care Note Total time excluding time spent on procedures (mins): 55 Discharge - Discharge Clinical Impression: Acute renal failure Qualifiers: Acute renal failure type: unspecified Qualified Code(s): N17.9 - Acute kidney failure, unspecified UTI (urinary tract infection) Qualifiers: Urinary tract infection type: acute cystitis Hematuria presence: without hematuria Qualified Code(s): N30.00 - Acute cystitis without hematuria Hypotension Qualifiers: Hypotension type: unspecified hypotension type Qualified Code(s): I95.9 - Hypotension, unspecified Condition: Fair Disposition: ADMITTED INPATIENT
--- NOTE | 2017-02-12 16:59 | EKG REPORT ---
SEVERITY:- ABNORMAL ECG - SINUS RHYTHM INFERIOR INFARCT, AGE INDETERMINATE(OLD) LATERAL LEADS ARE ALSO INVOLVED : Confirmed by: Enrique Lincoln MD 12-Feb-2017 16:58:45
[2017-02-12] MEDS ORDERED: METOPROLOL TARTRATE 25 MG TABLET PO SCH (22:00)
[2017-02-13] MEDS ORDERED: CLOPIDOGREL BISULFATE 300 MG TABLET PO SCH (10:00)
== END 2017-02-12 15:16 | disposition short-term general hospital (02) | DRG 682 ==
LOC: ER 10:51 → EH 14:21 → UNDOADMIN 14:21 → 3W 16:35 → EH 16:35 → 3W 18:00
PROVIDERS: ADMIT Internal Medicine Geriatric Medicine; ATTEND Internal Medicine Geriatric Medicine
PROC: 5A2204Z Restoration of Cardiac Rhythm, Single (ICD-10-PCS; principal; 2017-02-11)
PROC: 5A12012 Performance of Cardiac Output, Single, Manual (ICD-10-PCS; 2017-02-12)
PROC: 30233N1 Transfusion of Nonautologous Red Blood Cells into Peripheral Vein, Percutaneous Approach (ICD-10-PCS; 2017-02-12)
PROC: 06HM33Z Insertion of Infusion Device into Right Femoral Vein, Percutaneous Approach (ICD-10-PCS; 2017-02-12)
PROC: B54BZZA Ultrasonography of Right Lower Extremity Veins, Guidance (ICD-10-PCS; 2017-02-12)
DX: N17.9 Acute kidney failure, unspecified (principal); I21.19 ST elevation (STEMI) myocardial infarction involving other coronary artery of inferior wall; R57.0 Cardiogenic shock; N30.00 Acute cystitis without hematuria; R78.81 Bacteremia; I25.2 Old myocardial infarction; I95.9 Hypotension, unspecified; D64.9 Anemia, unspecified; M47.9 Spondylosis, unspecified; I25.10 Atherosclerotic heart disease of native coronary artery without angina pectoris; I10 Essential (primary) hypertension; M19.90 Unspecified osteoarthritis, unspecified site; E11.9 Type 2 diabetes mellitus without complications; Z79.4 Long term (current) use of insulin; Z79.899 Other long term (current) drug therapy; Z88.3 Allergy status to other anti-infective agents; Z88.8 Allergy status to other drugs, medicaments and biological substances; Z88.6 Allergy status to analgesic agent; Z88.4 Allergy status to anesthetic agent; Z88.2 Allergy status to sulfonamides; Z91.81 History of falling; Z90.710 Acquired absence of both cervix and uterus; Z85.41 Personal history of malignant neoplasm of cervix uteri; Z87.891 Personal history of nicotine dependence
CPT/HCPCS: 31500; 36415; 36430; 51701; 71020; 72050; 74176; 80053; 81001; 82550; 82553; 82803; 82962; 83605; 83735; 83880; 84100; 84484; 85025; 85610; 85730; 86850; 86900; 86901; 86920; 87040; 87077; 87086; 87088; 87186; 93005; 93010; 96361; 96365; 99291; G8978-GP; G8979-GP; J0171; J0282; J0330; J0696; J1644; J1815; J2704; J3490; J7030; P9016